=== PATIENT | male | born 1975 | race African-American/Black ===

== ENCOUNTER 2017-04-22 16:22 | Emergency (ER) | payer OTHER ==
[~2017-04-22] VITALS: Ht 177.8 cm; Wt 98.4 kg
[~2017-04-22 16:22] MED LIST: FLEXERIL5 MG PO; MOTRIN600 MG PO; NAPROSYN500 MG PO; NORCO 5/3251 TABLET PO; NORCO 7.5/321 TABLET PO; VALIUM5 MG PO
[2017-04-22 17:17] LABS: HEMATOCRIT 47.5 % (38.0-50.0); MCHC 34.1 G/DL (30.0-36.0); MEAN PLAT.VOLUME 12.3 uM^3 (9.0-12.4); PLATELET COUNT 209 K/uL (156-360); RBC DIS.WIDTH-CV 11.9 % (11.8-14.6); RBC DIS.WIDTH-SD 35.5 % (39-53); RED BLOOD COUNT 5.79 M/uL (4.00-5.50); WHITE BLOOD COUNT 7.4 K/uL (4.1-10.2)
[2017-04-22 17:26] LABS: ADD MIUA? YES; BILIRUBIN NEGATIVE; BLOOD MODERATE; COLOR COLORLESS ((YELLOW)); GLUCOSE (STRIP) >=500; KETONES NEGATIVE; LEUKOCYTES NEGATIVE; NITRITE NEGATIVE; PROTEIN (STRIP) NEGATIVE; SPECIFIC GRAVITY 1.028 (1.000-1.030); UROBILINOGEN 0.2 MG/DL (0.2-1.0)
[2017-04-22 17:28] LABS: CHLORIDE 92 mEq/L (99-109); POTASSIUM 4.8 mEq/L (3.7-5.4); SODIUM 128 mEq/L (136-147)
[2017-04-22 17:30] LABS: BACTERIA NONE SEEN /HPF; EPITHELIAL CELLS NONE SEEN /HPF; MUCUS NONE SEEN /LPF; UCUL ADDED? NO; WHITE BLOOD CELLS 0-5 /HPF (0-5)
[2017-04-22 17:31] LABS: ANION GAP 18 MEQ/L (2-14)
[2017-04-22 17:33] LABS: GFR ESTIMATE (CALCULATED) 57 mL/min/
[2017-04-22 17:34] LABS: UREA NITROGEN (BUN) 16 mg/dL (9-23)
[2017-04-22 17:53] LABS: GLUCOSE 721 mg/dL (70-99)
[2017-04-22 18:19] LABS: CARBON DIOXIDE (BICARBONATE) 29.4 MEQ/L (20-31)
[2017-04-22 19:23] LABS: POINT-OF-CARE METER ID UU13113800
[2017-04-22] MEDS ORDERED: METFORMIN HCL500 MG PO (20:08)
[2017-04-22 20:33] VITALS: BP 141/94
== END 2017-04-22 20:39 | disposition home or self-care (01) ==
LOC: EME 16:22
PROVIDERS: Physician Assistant
DX: E11.65 Type 2 diabetes mellitus with hyperglycemia (principal); Z91.018 Allergy to other foods
CPT/HCPCS: 71020; 80048; 81003; 82010; 82803; 82948; 85027; 99281; 99284; J7030

== ENCOUNTER 2017-06-03 11:49 | Emergency (ER) | payer OTHER ==
[~2017-06-03] VITALS: Ht 180.3 cm; Wt 93.1 kg
[~2017-06-03 11:49] MED LIST changes: +METFORMIN HCL500 MG PO
[2017-06-03] MEDS ORDERED: HYDROCODON-ACE1 EAC7 PO (14:10)
[2017-06-03 14:32] VITALS: BP 148/78
== END 2017-06-03 14:33 | disposition home or self-care (01) ==
LOC: EME 11:49
PROC: 0H98XZZ Drainage of Buttock Skin, External Approach (ICD-10-PCS; principal; 2017-06-03)
DX: L02.31 Cutaneous abscess of buttock (principal); E11.9 Type 2 diabetes mellitus without complications; Z79.84 Long term (current) use of oral hypoglycemic drugs; F17.200 Nicotine dependence, unspecified, uncomplicated
CPT/HCPCS: 99281; 99284